=== PATIENT | female | born 1995 | race Caucasian/White ===

== ENCOUNTER 2017-09-23 01:21 | Emergency (ER) | payer OTHER ==
[~2017-09-23] VITALS: Ht 167.6 cm; Wt 90.0 kg
[2017-09-23] MEDS ORDERED: SEIZURE MED (01:40)
[2017-09-23 05:38] VITALS: BP 100/52
== END 2017-09-23 06:37 | disposition home or self-care (01) ==
LOC: ED 06:31
DX: F10.120 Alcohol abuse with intoxication, uncomplicated (principal)
CPT/HCPCS: 99283